=== PATIENT | female | born 1995 | race Two or more races ===

== ENCOUNTER 2023-05-08 08:22 | Outpatient (CLI) | payer OTHER | END 2023-05-08 08:36 | disposition home or self-care (01) | LOC: LAB 08:22 | PROVIDERS: ATTEND Obstetrics & Gynecology | DX: Z34.81 Encounter for supervision of other normal pregnancy, first trimester (principal); Z3A.08 8 weeks gestation of pregnancy ==

== ENCOUNTER 2023-06-06 09:39 | Emergency (ER) | payer OTHER ==
[~2023-06-06] VITALS: Ht 162.6 cm; Wt 77.1 kg
== END 2023-06-06 13:56 | disposition home or self-care (01) ==
LOC: ER 09:39
DX: U07.1 COVID-19 (principal); A49.3 Mycoplasma infection, unspecified site

== ENCOUNTER → 2023-07-29 06:25 | Outpatient (CLI) | payer OTHER | END | disposition home or self-care (01) | LOC: LAB 06:25 | PROVIDERS: ATTEND Student in an Organized Health Care Education/Training Program | DX: N91.2 Amenorrhea, unspecified (principal); N39.0 Urinary tract infection, site not specified; Z34.01 Encounter for supervision of normal first pregnancy, first trimester; B17.9 Acute viral hepatitis, unspecified; R30.0 Dysuria ==

== ENCOUNTER 2023-08-08 15:52 | Outpatient (CLI) | payer OTHER | END 2023-08-08 16:52 | disposition home or self-care (01) | LOC: PRENATAL 15:52 | PROVIDERS: ATTEND Obstetrics & Gynecology Maternal & Fetal Medicine | DX: O35.3XX0 Maternal care for (suspected) damage to fetus from viral disease in mother, not applicable or unspecified (principal); O44.00 Complete placenta previa NOS or without hemorrhage, unspecified trimester; Z3A.21 21 weeks gestation of pregnancy ==

== ENCOUNTER → 2023-10-24 15:25 | Outpatient (CLI) | payer OTHER | END | disposition home or self-care (01) | LOC: PRENATAL 15:25 | PROVIDERS: ATTEND Obstetrics & Gynecology Maternal & Fetal Medicine | DX: O26.849 Uterine size-date discrepancy, unspecified trimester (principal); O36.8199 Decreased fetal movements, unspecified trimester, other fetus; Z3A.32 32 weeks gestation of pregnancy ==

== ENCOUNTER 2023-11-17 22:55 | Inpatient (IN) | payer OTHER ==
[~2023-11-17] VITALS: Ht 160 cm; Wt 80.3 kg
[2023-11-17] MEDS ORDERED: PRENATAL TABLE1 EAC1 PO (23:07)
[2023-11-17 23:34] LABS: PH,URINE 6.5 (5.0-8.0); URINE APPEARANCE Clear; URINE BILIRRUBIN Negative (NEGATIVE); URINE BLOOD Negative; URINE COLOR Yellow; URINE GLUCOSE Negative (NEGATIVE); URINE LEUKOCYTE Negative; URINE NITRATE Negative; URINE PROTEIN Negative (NEGATIVE)
[2023-11-17 23:37] LABS: URINE BACTERIA 1727.3 uL (0.0-1933); URINE EPITHELIAL CELLS 23.4 uL (0.0-38.8); URINE RBC 4.7 uL (0.0-20.8); URINE WBC 15.9 uL (0.0-23.2)
[2023-11-17 23:43] LABS: HEMATOCRIT 29.1 % (36.0-45.00); MEAN CELL VOLUME 88.2 fL (80.00-100.00); MEAN CORPUSCULAR HEMOGLOBIN 30.6 pg (27.00-32.0); MEAN CORPUSCULAR HGB CONC 34.7 g/dl (32.0-36.0); PLATELET COUNT 284 K/uL (150-450); RED CELL DISTRIBUTION WIDTH 13.4 % (11.5-14.5)
[2023-11-17 23:48] LABS: HEMOGLOBIN 10.1 g/dL (12.0-15.00)
[2023-11-17 23:54] LABS: ALBUMIN 2.6 gm/dL (3.4-5.0); BILIRUBIN TOTAL 0.5 mg/dL (0.3-1.2); CALCIUM 8.5 mg/dL (8.5-10.1); GFR 180.98; GLOBULINA 3.8 G/DL (2.4-3.5); POTASSIUM 3.64 mEq/L (3.5-5.1); TOTAL PROTEIN 6.4 gm/dL (6.4-8.2)
[2023-11-18 00:05] LABS: CREATININE SERUM 0.42 mg/dL (0.55-1.02)
== END 2023-11-19 21:51 | disposition left against medical advice (07) | DRG 833 ==
LOC: OBS/DEL 22:55 → LDR 23:39
PROVIDERS: ADMIT Obstetrics & Gynecology; ATTEND Obstetrics & Gynecology
PROC: 4A1HXCZ Monitoring of Products of Conception, Cardiac Rate, External Approach (ICD-10-PCS; principal; 2023-11-18)
PROC: BY4FZZZ Ultrasonography of Third Trimester, Single Fetus (ICD-10-PCS; 2023-11-18)
DX: O36.8130 Decreased fetal movements, third trimester, not applicable or unspecified (principal); O60.00 Preterm labor without delivery, unspecified trimester; O26.893 Other specified pregnancy related conditions, third trimester; Z3A.36 36 weeks gestation of pregnancy; Z20.822 Contact with and (suspected) exposure to COVID-19

== ENCOUNTER 2023-11-20 09:06 | Outpatient (CLI) | payer OTHER ==
[~2023-11-20 09:06] MED LIST: PRENATAL TABLE1 EAC1 PO
== END 2023-11-20 09:30 | disposition home or self-care (01) ==
LOC: NST 09:06
PROVIDERS: ATTEND Obstetrics & Gynecology
DX: Z34.93 Encounter for supervision of normal pregnancy, unspecified, third trimester (principal)

== ENCOUNTER 2023-11-21 08:43 | Outpatient (CLI) | payer OTHER | END 2023-11-21 12:48 | disposition home or self-care (01) | LOC: NST 08:43 | PROVIDERS: ATTEND Obstetrics & Gynecology | DX: Z34.83 Encounter for supervision of other normal pregnancy, third trimester (principal) ==

== ENCOUNTER 2023-11-26 16:36 | Inpatient (IN) | payer OTHER ==
[~2023-11-26] VITALS: Ht 152.4 cm; Wt 81.6 kg
[2023-11-26 18:28] LABS: URINE APPEARANCE Clear; URINE BILIRRUBIN Negative (NEGATIVE); URINE BLOOD Negative; URINE COLOR Yellow; URINE GLUCOSE Negative (NEGATIVE); URINE LEUKOCYTE Negative; URINE NITRATE Negative; URINE PROTEIN Negative (NEGATIVE)
[2023-11-26 18:30] LABS: HEMATOCRIT 34.4 % (36.0-45.00); HEMOGLOBIN 11.7 g/dL (12.0-15.00); MEAN CELL VOLUME 87.7 fL (80.00-100.00); MEAN CORPUSCULAR HEMOGLOBIN 29.9 pg (27.00-32.0); MEAN CORPUSCULAR HGB CONC 34.1 g/dl (32.0-36.0); PLATELET COUNT 319 K/uL (150-450); RED BLOOD COUNT 3.92 M/uL (4.00-6.00)
[2023-11-26 18:32] LABS: URINE BACTERIA 1848.1 uL (0.0-1933); URINE EPITHELIAL CELLS 12.6 uL (0.0-38.8); URINE RBC 3.7 uL (0.0-20.8); URINE WBC 9.5 uL (0.0-23.2)
[2023-11-26 18:46] LABS: INR 0.99; PARTIAL THROMBOPLASTIN TIME 25.8 SECONDS (22.0-34.0); PROTHROMBIN TIME 10.4 SECONDS (9.0-11.5)
[2023-11-26 18:58] LABS: ALBUMIN 3.1 gm/dL (3.4-5.0); BILIRUBIN TOTAL 0.69 mg/dL (0.3-1.2); CALCIUM 9.2 mg/dL (8.5-10.1); CREATININE SERUM 0.62 mg/dL (0.55-1.02); GFR 115.46; GLOBULINA 4.5 G/DL (2.4-3.5); POTASSIUM 4.21 mEq/L (3.5-5.1); TOTAL PROTEIN 7.6 gm/dL (6.4-8.2)
[2023-11-27 23:08] LABS: ABG PH 7.363 (7.35-7.45); ABG pCO2 36.4 mmHg (35-45)
[2023-11-27 23:09] LABS: ABG PO2 40.3 mmHg (80-100); BASE EXCESS -4.4 mmol/l; BICARBONATE 20.3 mmol/l (23-25); SaO2 72.4 %; Tco2 21.4 mmol/l; o2 21 %
[2023-11-29] MEDS ORDERED: IBUPROFEN400 MG PO (12:49)
[2023-11-29] MEDS ORDERED: COLACE100 MG PO (12:49)
== END 2023-11-29 13:18 | disposition home or self-care (01) | DRG 807 ==
LOC: LDR 16:36 → OB/GYN 11-27 18:33
PROVIDERS: Obstetrics & Gynecology; ADMIT Obstetrics & Gynecology; ATTEND Obstetrics & Gynecology
PROC: 3E0P7VZ Introduction of Hormone into Female Reproductive, Via Natural or Artificial Opening (ICD-10-PCS; 2023-11-26)
PROC: 4A1HXCZ Monitoring of Products of Conception, Cardiac Rate, External Approach (ICD-10-PCS; 2023-11-26)
PROC: 10E0XZZ Delivery of Products of Conception, External Approach (ICD-10-PCS; principal; 2023-11-27)
PROC: 0UQG7ZZ Repair Vagina, Via Natural or Artificial Opening (ICD-10-PCS; 2023-11-27)
PROC: 3E033VJ Introduction of Other Hormone into Peripheral Vein, Percutaneous Approach (ICD-10-PCS; 2023-11-27)
DX: O71.4 Obstetric high vaginal laceration alone (principal); Z37.0 Single live birth; Z3A.37 37 weeks gestation of pregnancy; Z20.822 Contact with and (suspected) exposure to COVID-19